=== PATIENT | male | born 1955 | race Caucasian/White ===

== ENCOUNTER → 2024-07-19 14:52 | Outpatient (REF) | payer OTHER, SELFPAY ==
[2024-07-19 16:38] LABS: Body Fluid WBC 13250 /CUMM
[2024-07-19 16:42] LABS: Body Fluid Mononuclear 33.6 %; Body Fluid Polymorphonuclear 66.4 %
[2024-07-19 16:44] LABS: Body Fluid Second Tech HB
== END ==
LOC: CLAB 14:52
PROVIDERS: ATTENDING PHYSICIAN Physician Assistant Surgical
DX: M25.461 Effusion, right knee (principal)
CPT/HCPCS: 89051; 89060